=== PATIENT | female | born 1990 | race Asian ===

== ENCOUNTER 2017-06-27 22:25 | Emergency (ER) | payer SELFPAY ==
[2017-06-27 22:42] VITALS: RESP 16; TEMP 99.5
[2017-06-27] MEDS ORDERED: ACETAMINOPHEN 500 MG TAB PO ONE (22:47)
[2017-06-27] MEDS ORDERED: NS 1,000 ML IV ONE (22:47)
--- NOTE | 2017-06-27 22:50 | EDPHY ---
H & P Stated Complaint: Difficulty breathing, fever, lethargy. Source: Patient - Personal History LMP (Females 10-55): Now Current Tetanus/Diphtheria Vaccine: Yes Current Tetanus Diphtheria and Acellular Pertussis (TDAP): Yes Tetanus Vaccine Date: 2016 - Medical/Surgical History Hx Asthma: No Hx Chronic Respiratory Disease: No Hx Diabetes: No Hx Cardiac Disease: No Hx Renal Disease: No Hx Cirrhosis: No Hx Alcoholism: No Hx HIV/AIDS: No Hx Splenectomy or Spleen Trauma: No Other PMH: Denies. - Social History Smoking Status: Never smoked Time Seen by Provider: 06/27/17 22:45 HPI/ROS: CHIEF COMPLAINT: Fever and cough History by patient HISTORY OF PRESENT ILLNESS: 27-year-old woman presents with 2 days of fever, generalized weakness, painful, nonproductive cough, stuffy nose with some nausea and 1 episode of vomiting yesterday. She has had some feeling of difficulty breathing but this has resolved and she does not feel short of breath currently. She denies any chest pain. There has been no diarrhea or abdominal pain. She has a scratchy throat. She has been taking some over-the- counter medicines with minimal relief. She has had no known ill contacts. She did get a flu shot this year. She does not smoke. She denies any urinary symptoms. She says she is feels similar to when her blood pressure was very low when she had a febrile illness in [place] a few years ago. REVIEW OF SYSTEMS: As in HPI, and all other systems reviewed and are negative (Naheed Ellis) - Physical Exam Exam: General Appearance: Alert, tired appearing. Head: normocephalic, atraumatic Eyes: Pupils equal and round, reactive to light, no pallor or injection. Mouth: Lips dry but Mucous membranes moist. Respiratory: Normal, effort, lungs are clear to auscultation. No wheezes, rales or rhonchi. Cardiovascular: Regular rate and rhythm. S1, S2, no murmurs, gallops or rubs appreciated Gastrointestinal: Abdomen is soft and nontender, no masses, bowel sounds normal. Back: No CVA tenderness, no bony tenderness Neurological: Awake, alert and oriented x 3, no pronator drift, normal gait, no pronator drift Skin: Warm and dry, no rashes. Musculoskeletal: No deformities or tenderness. Extremities: full range of motion, no edema, DP2+ bilat Psychiatric: Patient has normal affect, there is no agitation. (Naheed Ellis) Constitutional: Initial Vital Signs Temperature (C) 99.5 F 06/27/17 22:40 Heart Rate 90 06/27/17 22:40 Respiratory Rate 16 06/27/17 22:40 Blood Pressure 116/67 06/27/17 22:40 O2 Sat (%) 94 06/27/17 22:40 O2 Delivery Mode Room Air Allergies/Adverse Reactions: No Known Allergies Allergy (Unverified 06/27/17 22:43) Home Medications: Medication Instructions Recorded NK [No Known Home Meds] 06/27/17 Medical Decision Making - Diagnostics Imaging Results: Imaging Impressions Chest X-Ray 06/27/17 23:24 Impression: Prominence of perihilar interstitial markings and peribronchial cuffing. Findings are nonspecific but can be seen with bronchitis, reactive airway disease, or viral process. ED Course/Re-evaluation: 27-year-old woman presents with flu-like symptoms, low-grade fever and stable vital signs but somewhat ill-appearing. Patient is given IV fluids. A rapid flu, rapid strep and labs are pending. I will transfer care to Dr. Cash for final disposition pending results of the labs and re-evaluation. (Naheed Ellis) Other Provider: I independently examined the patient, reviewed the prior chart, vital signs and lab data. CBC and basic metabolic panel were fairly unremarkable and the rapid flu and rapid strep test were both negative. I ordered and reviewed a two-view chest x-ray which was read as consistent with a probable bronchitis, reactive airway disease or viral illness. The patient and her were advised that the patient should rest, drink plenty of fluids, Tylenol or ibuprofen for pain or fever. She should follow up with her regular provider as needed or return to the emergency room sooner if symptoms change or worsen as discussed. Patient and understood and all questions were answered. (Hiral Cash) - Data Points Laboratory Results: Laboratory Results 06/27/17 22:55 06/27/17 22:55 06/27/17 06/27/17 12 Unknown 22:55 22:55 WBC 5.11 10^3/uL 10^3/uL (3.80-9.50) RBC 4.40 10^6/uL 10^6/uL (4.18-5.33) Hgb 12.7 g/dL g/dL (12.6-16.3) Hct 38.1 % % (38.0-47.0) MCV 86.6 fL fL (81.5-99.8) MCH 28.9 pg pg (27.9-34.1) MCHC 33.3 g/dL g/dL (32.4-36.7) RDW 13.2 % % (11.5-15.2) Plt Count 225 10^3/uL 10^3/uL (150-400) MPV 10.0 fL fL (8.7-11.7) Neut % (Auto) 60.5 % % (39.3-74.2) Lymph % (Auto) 29.9 % % (15.0-45.0) Dare % (Auto) 8.8 % % (4.5-13.0) Eos % (Auto) 0.0 % L % (0.6-7.6) Baso % (Auto) 0.4 % % (0.3-1.7) Nucleat RBC Rel Count 0.0 % % (0.0-0.2) Absolute Neuts (auto) 3.09 10^3/uL 10^3/uL (1.70-6.50) Absolute Lymphs (auto) 1.53 10^3/uL 10^3/uL (1.00-3.00) Absolute Monos (auto) 0.45 10^3/uL 10^3/uL (0.30-0.80) Absolute Eos (auto) 0.00 10^3/uL L 10^3/uL (0.03-0.40) Absolute Basos (auto) 0.02 10^3/uL 10^3/uL (0.02-0.10) Absolute Nucleated RBC 0.00 10^3/uL 10^3/uL (0-0.01) Immature Gran % 0.4 % % (0.0-1.1) Immature Gran # 0.02 10^3/uL 10^3/uL (0.00-0.10) Sodium 136 mEq/L mEq/L (134-144) Potassium 3.4 mEq/L L mEq/L (3.5-5.2) Chloride 100 mEq/L mEq/L (97-110) Carbon Dioxide 20 mEq/l L mEq/l (22-31) Anion Gap 16 mEq/L mEq/L (8-16) BUN 8 mg/dL mg/dL (7-23) Creatinine 0.5 mg/dL L mg/dL (0.6-1.0) Estimated GFR > 60 Glucose 101 mg/dL H mg/dL (70-100) Calcium 9.0 mg/dL mg/dL (8.5-10.4) Influenza A,B Rapid Group A Strep Screen Group A Strep DNA Pending 06/27/17 06/27/17 22:43 22:43 WBC RBC Hgb Hct MCV MCH MCHC RDW Plt Count MPV Neut % (Auto) Lymph % (Auto) Dare % (Auto) Eos % (Auto) Baso % (Auto) Nucleat RBC Rel Count Absolute Neuts (auto) Absolute Lymphs (auto) Absolute Monos (auto) Absolute Eos (auto) Absolute Basos (auto) Absolute Nucleated RBC Immature Gran % Immature Gran # Sodium Potassium Chloride Carbon Dioxide Anion Gap BUN Creatinine Estimated GFR Glucose Calcium Influenza A,B Rapid NEGATIVE FOR FLU (NEGATIVE) Group A Strep Screen NEGATIVE (NEGATIVE) Group A Strep DNA Medications Given: Discontinued Medications Acetaminophen (Tylenol) 1,000 mg PO EDNOW ONE Stop: 06/27/17 22:48 Last Admin: 06/27/17 22:55 Dose: 1,000 mg Sodium Chloride (Ns) 1,000 mls @ 0 mls/hr IV EDNOW ONE; Wide Open PRN Reason: Protocol Stop: 06/27/17 22:48 Last Admin: 06/27/17 22:52 Dose: 1,000 mls Departure - Departure Disposition: Home, Routine, Self-Care Clinical Impression: Bronchitis Condition: Good Instructions: Acute Bronchitis (ED) Additional Instructions: Rest. Drink plenty of fluids. Tylenol or ibuprofen for fever or pain. Follow up with your regular provider as needed or return to the emergency room if symptoms change or worsen as discussed. Referrals: Unknown,Unknown [Primary Care Provider] - Follow Up Only If Needed (Nuno
[2017-06-27 23:01] LABS: PLATELET COUNT 225 10^3/uL (150-400)
[2017-06-28 00:26] VITALS: BP 105/61; PULSE 84; O2SAT 95
== END 2017-06-28 00:28 | disposition home or self-care (01) ==
LOC: CED 22:25
DX: J40 Bronchitis, not specified as acute or chronic (principal); E86.9 Volume depletion, unspecified
CPT/HCPCS: 71020-PO; 80048-PO; 84703-PO; 85025-PO; 87400-PO; 87880-PO